=== PATIENT | male | born 2000 | race Caucasian/White ===

== ENCOUNTER → 2024-11-12 08:38 | Outpatient (REF) | payer OTHER, SELFPAY | LOC: HWRAD 08:38 | PROVIDERS: ATTENDING PHYSICIAN Family Medicine | DX: R10.84 Generalized abdominal pain (principal) | CPT/HCPCS: 76700 ==

== ENCOUNTER 2025-03-28 06:02 | Day surgery (SDC) | payer OTHER, SELFPAY ==
[2025-03-28] VITALS (7 sets, daily range): BP systolic 110–154; BP diastolic 72–95; BMI 30.7
[2025-03-28] MEDS: TYLENOL 1000 MG PO (06:30)
[2025-03-28] MEDS: NORMOSOL-R/PLASMALYTE-A 1000 IV (06:41)
--- NOTE | 2025-03-28 06:52 | HP.FOC2 ---
Focused History & Physical
Chief Complaint
HPI:
Chief Complaint: Gallstones/abdominal pain
HPI / Indication for Planned Procedure: Patient is a 24-year-old male recently seen in outpatient surgical evaluation secondary to history of postprandial and overnight abdominal pain awakening him from sleep. Outpatient evaluation was notable for
gallstones. In the setting of suspected symptomatic cholelithiasis patient presents for cholecystectomy today
Relevant Past Medical History: Other (History of Alejandrina-Car, congenital nystagmus,)
Relevant Social History: Negative
Relevant Family History: Negative
Relevant Past Surgical History: Positive for ([place] tooth extraction)
Review of Systems
Review of Pertinent Systems: All Systems Negative
Medication
See Medication form for detailed medications: Yes
Medication List (including Herbals & OTC):
esomeprazole magnesium 20 mg capsule,delayed release (Nexium) 20 mg PO DAILY 03/23/25
famotidine 10 mg tablet 10 mg PO HS PRN gerd 03/23/25
fluoxetine 20 mg tablet 20 mg PO DAILY 03/23/25
Medications Reviewed: Yes
Allergies and Reactions
Patient has Allergies: No
Noted Allergies and Reactions:
Allergy/AdvReac Type Severity Reaction Status Date / Time
No Known Allergies Allergy Verified 03/28/25 06:24
Pertinent Physical Exam
All Other Systems: Negative
Head/Neck: Normal
Lungs: Normal
Heart: Normal
Abdomen: Normal and Other
Extremities: Normal
Neurological: Normal
Diagnosis / Assessment
24 old male with symptomatic cholelithiasis presenting for cholecystectomy
Plan / Procedure
Laparoscopic cholecystectomy with intraoperative cholangiogram
Anesthesia/Sedation to be done by Anesthesia Provider: Yes
--- NOTE | 2025-03-28 06:54 | W.SUR.PREOP ---
Pre-Operative Surgical Note
-
I have examined this patient prior to the performance of the scheduled procedure.
The patient's condition is unchanged from the time of the current History and
Physical and the patient is able to undergo the scheduled procedure.
--- NOTE | 2025-03-28 08:25 | W.IMMPOSTOP ---
Addendum entered and electronically signed by Zana Adler MD 03/28/25 08:34:
#[id number]
Original Note:
Surgical Immed Post Op Note
-
Primary Surgeon: aZna Adler MD
Assisting Surgeon: Nancy Sood PA-c
Pre-op Diagnosis: Symptomatic cholelithiasis
Post-op Diagnosis: Symptomatic cholelithiasis
Procedure Performed: Laparoscopic cholecystectomy with cholangiogram
Anesthesia Type: GETA +0.25% Marcaine
Specimen / Cultures: Gallbladder
Estimated Blood Loss: 4 mL
Complications: None immediate
Operative Findings: Physiologically distended gallbladder with stones. Few filmy adhesions. Intraoperative cholangiogram normal
The assistance of Nancy Sood PA-C was required due to the complexity of the procedure. During the procedure Nancy Marcelo PA-C assisted with laparoscopic trocar placement, gallbladder retraction, managing the laparoscope for visualization, and
closure of the incision sites. I was present for the entirety of the operative procedure.
== END 2025-03-28 10:00 | disposition home or self-care (01) ==
LOC: SDS 06:02
PROVIDERS: ATTENDING PHYSICIAN Surgery
DX: K80.10 Calculus of gallbladder with chronic cholecystitis without obstruction (principal)
CPT/HCPCS: 47563; 74300; 76000; 88304; A4300